=== PATIENT | male | born 1955 | race African-American/Black ===

== ENCOUNTER 2018-06-16 11:45 | Emergency (ER) | payer OTHER ==
[2018-06-16 11:54] VITALS: BMI 41.1
--- NOTE | 2018-06-16 11:54 | PDOC ---
History of Present Illness - General Chief Complaint: Pain Stated Complaint: HIP PAIN Time Seen by Provider: 06/16/18 11:53 History Source: Patient - History of Present Illness Initial Comments: 06/16/18 12:15 The patient is a 63 year old male who was BIBEMS c/o acute onset of L buttock pain. Pain is squeezing, constant, 10/10 and radiates down his R leg to his ankle. Denies any h/o recent trauma, calf pain or new LE swelling. No h/o similar previous pain. States he took some prescribed Ibuprofen but his pain did not improve prompting his to call 911. Denies any trauma or h/o similar previous pain. @ bedside presents two prescription pill bottles, one for Ibuprofen, one for Naproxen both for "inflammation." NKDA Surgical: none reported Social: denies toxic habits PMD: @ [place] Past History - Past Medical History Allergies/Adverse Reactions: Allergies Allergy/AdvReac Type Severity Reaction Status Date / Time No Known Allergies Allergy Verified 06/16/18 12:17 Home Medications: Ambulatory Orders Ibuprofen 400 mg PO QID 06/16/18 Methocarbamol [Robaxin -] 500 mg PO TID #21 tablet 06/16/18 Review of Systems - Review of Systems Constitutional: No: Chills, Fever HEENTM: No: Blurred Vision, Double Vision Respiratory: No: Cough, Shortness of Breath Cardiac (ROS): No: Chest Pain, Lightheadedness, Palpitations, Syncope ABD/GI: No: Constipated, Diarrhea, Nausea, Vomiting : No: Burning, Dysuria *Physical Exam - Physical Exam General Appearance: Yes: Nourished, Appropriately Dressed HEENT: positive: Normal Voice, Hearing Grossly Normal Neck: positive: Trachea midline, Supple Respiratory/Chest: positive: Lungs Clear, Normal Breath Sounds. negative: Crackles, Wheezing Cardiovascular: positive: S1, S2. negative: Edema Vascular Pulses: Dorsalis-Pedis (R): 2+, Doralis-Pedis (L): 2+ Gastrointestinal/Abdominal: positive: Normal Bowel Sounds, Soft Musculoskeletal: negative: CVA Tenderness (R), CVA Tenderness (L) Extremity: positive: Normal Capillary Refill, Normal Inspection, Other (LLE full ROM, tender @ lateral pelvis, 2+ DP pulse) Heart Score/ECG Review - ECG Impressions Comment:: 06/16/18 13:48 NSR HR 71, normal intervals, no deviations, no GUICHO/STD/TWI - non-ischemic ECG ED Treatment Course - LABORATORY CBC & Chemistry Diagram: 06/16/18 12:40 06/16/18 12:40 Medical Decision Making - Medical Decision Making 06/16/18 13:19 63 year old male with acute onset of L hip pain that radiates down his leg. Initally hypertensive (179/105). Repeat BP 167/91. 2+ DP pulses, full ROM, exquisitely TTP, no calf tenderness, LE edema. DDx includes muskoskeletal: piriformis syndrome, neurological (sciatica), vascular (DVT). Will obtain basic labs, LE duplex Ultrasound. Reassess. 06/16/18 14:51 LLE Duplex negative Patient reassessed @ bedside continues to c/o pain. Will obtain CT Lumbar spine to r/o herniated disc, spinal stenosis causing sciatic like symptoms. 06/16/18 16:10 Patient reassessed s/p CT. VSS Robaxin for pain. Image forwarded to [facility]. 06/16/18 18:48 CT shows moderate degenerative changes L4-L5 w/disc space narrowing, B/L foraminal stenosis. Patient reassessed @ bedside. Patient symptomatically improved. Will discharge home with cane and [facility] follow-up. I discussed the physical exam findings, ancillary test results and final diagnoses with the patient. I answered all of the patient's questions. The patient was satisfied with the care received and felt comfortable with the discharge plan and treatment plan. The patient will return to the Emergency Department with any new, persistent or worsening symptoms. 06/17/18 00:29 *DC/Admit/Observation/Transfer Diagnosis at time of Disposition: Hip pain - Discharge Dispostion Disposition: HOME Condition at time of disposition: Good Decision to Admit order: No - Prescriptions Prescriptions: Methocarbamol [Robaxin -] 500 mg PO TID #21 tablet - Referrals - Patient Instructions Printed Discharge Instructions: DI for Hip Pain Additional Instructions: You were evaluated today for your hip pain. At this time you are safe for discharge home. Please make a follow up appointment with your primary care doctor in the next 3 days. We have sent a 7 day prescription for pain medication to your pharmacy. Return to the Emergency Department for any new/worsening/concerning findings. - Post Discharge Activity Forms/Work/School Notes: Back to Work
[2018-06-16] MEDS ORDERED: morphine CARPU-JECT 4 MG/1 ML DISP.SYRIN IVPUSH ONE (12:17)
[2018-06-16] MEDS ORDERED: morphine CARPU-JECT 2 MG/1 ML DISP.SYRIN IM ONE (12:19)
--- NOTE | 2018-06-16 12:25 | PDOC ---
Attending Attestation - Resident Resident Name: Maia Reese - ED Attending Attestation I have performed the following: I have examined & evaluated the patient, The case was reviewed & discussed with the resident, I agree w/resident's findings & plan, Exceptions are as noted <Mela Arciniega - Last Filed: 06/16/18 12:25> - HPI HPI: 06/16/18 12:40 The patient is a 63 year old male, with no significant PMH who presents to the emergency department with left sided hip pain today. Patient states the left sided hip pain radiates down his left leg. Patient reports the hip pain is constant and cramping in nature. Patient was prescribed ibuprofen and naproxen in the past for leg inflammation but had no relief of his hip pain today. The patient denies chest pain, shortness of breath, headache and dizziness. Denies fever, chills, nausea, vomit, diarrhea and constipation. Denies dysuria, frequency, urgency and hematuria. Allergies: NKA Past surgical history: None reported. Social history: No reported alcohol, drug or cigarette use <Nina Villanueva - Last Filed: 06/16/18 12:41>
[2018-06-16 13:36] LABS: EOS % 0.8 % (0-4.5); HEMATOCRIT 45.6 % (35.4-49); LYMPH % 13.4 % (8-40); MCH 30.2 pg (25.7-33.7); MCHC 35.2 g/dl (32.0-35.9); MEAN CELL VOLUME 85.9 fl (80-96); MEAN PLT VOLUME 6.9 fl (7.5-11.1); MONO % 6.1 % (3.8-10.2); NEUT % 78.7 % (42.8-82.8); PLATELET COUNT 280 K/MM3 (134-434); RBC 5.32 M/mm3 (4.00-5.60); WHITE BLOOD COUNT 7.3 K/mm3 (4.0-10.0)
[2018-06-16 13:59] LABS: ALBUMIN 4.1 g/dl (3.4-5.0); ALK PHOS 115 U/L (45-117); ANION GAP 8 MMOL/L (8-16); BILIRUBIN,TOTAL 0.4 mg/dL (0.2-1); BLOOD UREA NITROGEN 18 mg/dL (7-18); CALCIUM 9.1 mg/dL (8.5-10.1); CHLORIDE 104 mmol/L (98-107); CO2 24 mmol/L (21-32); CREATININE 1.1 mg/dL (0.55-1.3); GLUCOSE,RANDOM 126 mg/dL (74-106); POTASSIUM 4.1 mmol/L (3.5-5.1); SGOT/AST 30 U/L (15-37); SGPT/ALT 39 U/L (13-61); SODIUM 137 mmol/L (136-145); TOT PROT 7.5 g/dl (6.4-8.2)
[2018-06-16] MEDS ORDERED: METHOCARBAMOL 500 MG TABLET PO ONE ×2 (16:12→18:47)
[2018-06-16] MEDS ORDERED: METHOCARBAMOL 500 MG TABLET ONE ×2 (16:32→18:53)
[2018-06-16 18:46] VITALS: BP 157/85; PULSE 70; TEMP 98.1
--- NOTE | 2018-06-17 10:36 | EKG ---
Test Reason : Blood Pressure : / mmHG Vent. Rate : 071 BPM Atrial Rate : 071 BPM P-R Int : 154 ms QRS Dur : 084 ms QT Int : 340 ms P-R-T Axes : 061 091 073 degrees QTc Int : 369 ms NORMAL SINUS RHYTHM POSSIBLE LEFT ATRIAL ENLARGEMENT RIGHTWARD AXIS SEPTAL INFARCT , AGE UNDETERMINED ABNORMAL ECG NO PREVIOUS ECGS AVAILABLE Confirmed by DRU VIRGEN MD ([id number]) on 06/17/2018 10:35:50 AM Referred By: Confirmed By:DRU VIRGEN MD
== END 2018-06-16 19:03 | disposition home or self-care (01) ==
LOC: JER 11:45
PROC: 3E023NZ Introduction of Analgesics, Hypnotics, Sedatives into Muscle, Percutaneous Approach (ICD-10-PCS; principal; 2018-06-16)
DX: M25.512 Pain in left shoulder (principal); R03.0 Elevated blood-pressure reading, without diagnosis of hypertension
CPT/HCPCS: 36415; 72131-TC; 80053; 85025; 93005; 93010; 93971-TC; 99283-25